=== PATIENT | male | born 1960 | race Caucasian/White ===

== ENCOUNTER → 2017-08-10 14:12 | Outpatient (CLI) | payer BC ==
[~2017-08-10 14:12] MED LIST: BACTRIM DS TABL1 TAB PO; CELECOXIB PO; HYDROCODONE-APA1 TAB PO; inhaler
[2017-08-20 09:15] VITALS: BMI 28.1
== END | disposition home or self-care (01) ==
LOC: D.MRI 14:12
DX: M54.16 Radiculopathy, lumbar region (principal)

== ENCOUNTER 2017-08-20 08:05 | Day surgery (SDC) | payer BC ==
[~2017-08-20] VITALS: Ht 175.3 cm; Wt 86.2 kg
--- NOTE | ~2017-08-20 | OP ---
PATIENT NAME: MAGDY DEWITT MEDICAL RECORD: [id number] :58 LOCATION:D.OPS ADMISSION DATE: SURGEON: BRI CHAHAL MD DATE OF OPERATION: 08/20/2017 PREOPERATIVE DIAGNOSIS: Large abscess, left lower extremity. POSTOPERATIVE DIAGNOSIS: Large abscess, left lower extremity. PROCEDURE: Excisional debridement of large abscess, left lower extremity skin, subcutaneous tissue, portions of fat, fascia, muscle, less than 20 cm in aggregate. SURGEON: Bri Chahal MD ANESTHESIA: General. INTRAOPERATIVE COMPLICATIONS: None. SUMMARY OF PATHOLOGIC FINDINGS: Upon incising this large abscess, copious amounts of purulence immediately came forth. It was cultured at this time. Gram stain, aerobic and anaerobic cultures were sent. OPERATIVE SUMMARY IN DETAIL: After obtaining the appropriate preoperative orthopedic surgery consent as well as anesthetic consultation, evaluation and clearance, the patient was brought to the operating room and placed on the operating table in supine position. After general laryngeal mask airway was administered, the patient was placed in a left lateral decubitus position. All pressure points were well padded to include down leg peroneal pad as well as axillary roll. The patient was held firmly to the operating room table using the vacuum pack suction system. Left lower extremity was then prepped and draped in a routine sterile fashion. An incision was made directly over the small opening and carried out approximately 6 cm. Copious amounts of purulence were noted. This was cultured. A combination of curettage and rongeur was then used to completely debride the area in and around the abscess, approximately 500 cc of fluid was then ran through the wound using bulb syringe lavage. Having completed this, the wound was packed with quarter-inch Nu Gauze. Sterile dressings were applied. The patient was awakened and taken to the recovery room in stable condition. All final needle and sponge counts were correct. TRANSINT:[id number] Voice Confirmation ID: [id number] DOCUMENT ID: [id number] TIRSO GUARDADO, BRI MERAZ at 1436 CC: [id number] DICTATION DATE: 08/20/17 1043 TINTER PHOTOGRAPH: 08/20/17 1213 [facility] 08/20/17 [place] [address]
[2017-08-20] MEDS ORDERED: CELECOXIB PO (09:12)
[2017-08-20] MEDS ORDERED: BACTRIM DS TABL1 TAB PO (09:13)
[2017-08-20] MEDS ORDERED: inhaler (09:14)
[2017-08-20 09:15] VITALS: Ht 175.3 cm; Wt 86.2 kg
[2017-08-20 09:43] LABS: BASOPHILS 0.2 % (0-2); IMMATURE GRANULOCYTES 0.2 % (0-5); MCH 30.3 pg (26.0-34.0); MCHC 34.9 g/dL (31.0-37.0); MCV 86.9 fL (80.0-100.0); MEAN PLATELET VOLUME 9.2 fL (7.4-10.4); MONOCYTES 11.3 % (2-11); NEUTROPHILS 68.3 % (40-80); PLATELET COUNT 207 10x3/uL (130-400); RBC 4.95 10x6/uL (4.20-6.10); RDW 12.6 % (11.5-14.5); WBC 4.9 10x3/uL (4.8-10.8)
[2017-08-20] MEDS ORDERED: HYDROCODONE-APA1 TAB PO (10:41)
== END 2017-08-20 12:40 | disposition home or self-care (01) ==
LOC: D.OPS 08:05
PROVIDERS: Anesthesiology
DX: L02.91 Cutaneous abscess, unspecified (principal); M54.16 Radiculopathy, lumbar region; J45.909 Unspecified asthma, uncomplicated; K21.9 Gastro-esophageal reflux disease without esophagitis; Z01.812 Encounter for preprocedural laboratory examination